=== PATIENT | female | born 1995 | race Hispanic/Latino ===

== ENCOUNTER 2020-07-07 20:04 | Emergency (ER) | payer OTHER ==
[~2020-07-07] VITALS: Ht 162.6 cm; Wt 63.9 kg
[2020-07-07] MEDS ORDERED: NORCO, ANEXSIA 5/325MG TABLET (HYDROcodone/ACETAMINOPHEN) PO ONE (20:50)
--- NOTE | 2020-07-07 21:42 | REPVR ---
PROCEDURE INFORMATION: Exam: XR Right Wrist Exam date and time: 07/07/2020 8:10 PM Age: 24 years old Clinical indication: Pain; Wrist; Right; Additional info: Injury TECHNIQUE: Imaging protocol: XR Right wrist. Views: 3 or more views. COMPARISON: No relevant prior studies available. FINDINGS: Bones/joints: There is an impacted fracture of the distal radial metaphysis with mild dorsal angulation at the fracture site. The fracture does not appear to extend to the physis. No other displaced fracture is seen. Soft tissues: Generalized soft tissue swelling. IMPRESSION: Dorsally angulated fracture of the distal radial metaphysis. Electronically signed by: Abdiel Jacobs On 07/07/2020 21:42:19 PM
[2020-07-07] MEDS ORDERED: NS 1,000 ML IV SCH (22:33)
[2020-07-07] MEDS ORDERED: ONDANSETRON 4MG/2ML VIAL IV ONE (22:35)
[2020-07-07] MEDS ORDERED: KETAMINE HCL 200 MG/20 ML VIAL IV ONE ×2 (22:35→23:05)
[2020-07-07] MEDS: propofoL 200 MG/20 ML VIAL IV PRN ×7 (22:54→23:07)
--- NOTE | 2020-07-07 23:47 | REPVR ---
PROCEDURE INFORMATION: Exam: XR Right Wrist Exam date and time: 07/07/2020 11:39 PM Age: 24 years old Clinical indication: Pain; Wrist; Right; Additional info: Post reduction TECHNIQUE: Imaging protocol: XR Right wrist. Views: 1 or 2 views. COMPARISON: CR Wrist, complete RIGHT 07/07/2020 8:14 PM FINDINGS: Bones/joints: Interval reduction and splinting of the distal radius fracture. Alignment at the fracture site is normal. No new abnormalities. Soft tissues: Mild soft tissue swelling. IMPRESSION: Normal alignment following closed reduction. Electronically signed by: Abdiel Jacobs On 07/07/2020 23:47:18 PM
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
[2020-07-08] MEDS ORDERED: OXYCODONE/APAP 5MG/325MG(BULK FOR ED) 1 TABLET PO ONE
[2020-07-08 01:01] VITALS: BP 122/70
--- NOTE | 2020-07-08 07:47 | REP ---
INDICATION: R distal radius fx, itraoperative/reduction COMPARISON: 07/07/2020 TECHNIQUE: Two fluoroscopic postreduction views FINDINGS: The fracture of the distal radius is stabilized in satisfactory position and alignment with a plaster cast. Fluoroscopic exposure time is 9 seconds. IMPRESSION: The fracture of the distal radius is been satisfactorily reduced. <Electronically signed by Get Jean > 07/08/20 0743
== END 2020-07-08 01:04 | disposition home or self-care (01) ==
LOC: M ED 20:04
DX: S52.501A Unspecified fracture of the lower end of right radius, initial encounter for closed fracture (principal); W22.8XXA Striking against or struck by other objects, initial encounter; Y92.89 Other specified places as the place of occurrence of the external cause; Y93.75 Activity, martial arts
CPT/HCPCS: 25505; 73100; 73110; 93041; 94760; 96361; 96374; 99152; 99291; J2405

== ENCOUNTER 2021-06-22 23:00 | Emergency (ER) | payer OTHER ==
[~2021-06-22] VITALS: Ht 162.6 cm; Wt 63.6 kg
[2021-06-23] MEDS ORDERED: NS 1,000 ML IV ONE ×2 (02:55)
[2021-06-23 03:17] LABS: BASO % 0.2 % (0.0-1.0); EOS # 0.3 10^3/uL (0.0-0.5); EOS % 2.1 % (0.0-3.0); HEMATOCRIT 44.9 % (36.0-47.0); HEMOGLOBIN 14.8 g/dl (12.0-15.5); LYMPH % 7.8 % (24.0-44.0); MEAN CORPUSCULAR HEMOGLOBIN 28.6 pg (27.0-33.0); MEAN CORPUSCULAR VOLUME 86.8 fl (80.0-96.0); MONO # 0.9 10^3/uL (0.0-0.8); MONO % 6.6 % (2.0-8.0); NEUTROPHILS # 10.9 10^3/uL (1.5-8.5); NEUTROPHILS % 82.8 % (36.0-66.0); PLATELET COUNT, AUTOMATED 195 10^3/uL (150-450); RED BLOOD COUNT 5.17 10^6/uL (4.00-5.40); WHITE BLOOD COUNT 13.1 10^3/uL (4.0-10.0)
[2021-06-23 03:19] LABS: BLOOD UREA NITROGEN 11 MG/DL (7-18); CALCIUM LEVEL 8.7 MG/DL (8.5-10.1); CARBON DIOXIDE LEVEL 32 MEQ/L (21-32); CHLORIDE LEVEL 106 MEQ/L (98-107); CREATININE FOR GFR 0.86 MG/DL (0.55-1.30); GLOMERULAR FILTRATION RATE > 60.0 (>60); GLUCOSE, FASTING 105 MG/DL (70-100); MAGNESIUM LEVEL 1.8 MG/DL (1.8-2.4); POTASSIUM SERUM 3.9 MEQ/L (3.5-5.1); SODIUM LEVEL 141 MEQ/L (136-145)
[2021-06-23 03:20] LABS: HCG, SERUM QUALITATIVE NEGATIVE (NEGATIVE)
[2021-06-23 03:30] VITALS: BP 104/57
[2021-06-23] MEDS ORDERED: ONDA4TAB6 PO (05:33)
[2021-06-23] MEDS ORDERED: LOPE-39 PO (05:33)
== END 2021-06-23 06:20 | disposition home or self-care (01) ==
LOC: M ED 23:00
DX: A08.11 Acute gastroenteropathy due to Norwalk agent (principal); R11.2 Nausea with vomiting, unspecified; R19.7 Diarrhea, unspecified